=== PATIENT | female | born 1980 | race Caucasian/White ===

== ENCOUNTER 2018-05-13 07:18 | Emergency (ER) | payer BC ==
[~2018-05-13] VITALS: Ht 162.6 cm; Wt 76.2 kg
[2018-05-13 07:25] VITALS: BP 130/94
[2018-05-13] MEDS ORDERED: HYDROXYZINE HCL25 M2 PO (07:41)
== END 2018-05-13 08:03 | disposition home or self-care (01) ==
LOC: ER 07:18
DX: L50.9 Urticaria, unspecified (principal)

== ENCOUNTER 2018-10-11 17:56 | Emergency (ER) | payer OTHER, BC ==
[~2018-10-11] VITALS: Ht 162.6 cm; Wt 77.1 kg
[~2018-10-11 17:56] MED LIST: HYDROXYZINE HCL25 M2 PO
[2018-10-11] MEDS ORDERED: VYVANSE50 MG PO (18:01)
[2018-10-11] MEDS ORDERED: NECON1 EACH PO (18:01)
[2018-10-11 18:53] VITALS: BP 149/97
== END 2018-10-11 18:54 | disposition home or self-care (01) ==
LOC: ER 17:56
DX: S61.011A Laceration without foreign body of right thumb without damage to nail, initial encounter (principal); F90.9 Attention-deficit hyperactivity disorder, unspecified type; X58.XXXA Exposure to other specified factors, initial encounter; Y93.89 Activity, other specified; Y92.89 Other specified places as the place of occurrence of the external cause; Y99.8 Other external cause status